=== PATIENT | male | born 1955 | race Two or more races ===

== ENCOUNTER 2022-07-02 15:30 | Emergency (ER) | payer MEDICARE, OTHER ==
[~2022-07-02] VITALS: Ht 180.3 cm; Wt 85.7 kg
--- NOTE | 2022-07-02 15:50 | NUR ---
TECH AT BEDSIDE FOR EKG
--- NOTE | 2022-07-02 15:56 | NUR ---
IV LINE ESTABLISHED ON RAC #20 ONLINE EDITOR; BLOOD DRAWN AND SENT TO LAB
[2022-07-02 16:05] LABS: BASOPHILS % (AUTO) 0.4 % (0.0-2.0); EOSINOPHILS % (AUTO) 5.3 % (0.0-6.0); HEMATOCRIT 41 % (39-51); HEMOGLOBIN 13.7 g/dL (13.5-17.5); LYMPHOCYTES % (AUTO) 39.7 % (20.0-44.0); MEAN CORPUSCULAR HGB CONC 33 g/dl (31.0-36.0); MEAN CORPUSCULAR VOLUME 97 fL (80-96); MONOCYTES # (AUTO) 0.6 K/uL (0.1-1.30); MONOCYTES % (AUTO) 8.1 % (2.0-12.0); NEUTROPHILS # (AUTO) 3.5 K/uL (1.8-8.9); NEUTROPHILS % (AUTO) 46.5 % (43.0-81.0); PLATELET COUNT (AUTO) 120 K/uL (150-450); RED BLOOD CELL COUNT(AUTO) 4.26 MIL/uL (4.5-6.0); WHITE BLOOD COUNT (AUTO) 7.5 K/uL (4.3-11.0)
[2022-07-02 16:22] LABS: CALCIUM, SERUM 8.8 mg/dL (8.5-10.1); CARBON DIOXIDE 25 mmol/L (21-32); CHLORIDE 106 mmol/L (98-107); CREATININE 1.3 mg/dL (0.6-1.3); GLUCOSE 104 mg/dL (74-106); POTASSIUM 3.9 mmol/L (3.5-5.1); SODIUM SERUM 140 mmol/L (136-145); UREA NITROGEN, BLOOD 24 mg/dL (7-18)
[2022-07-02] MEDS ORDERED: ACETAMINOPHEN ES 500 MG TABLET ONE (16:56)
[2022-07-02] MEDS ORDERED: ACETAMINOPHEN ES 500 MG TABLET PO ONE (17:00)
[2022-07-02 19:18] VITALS: BP 90/70
--- NOTE | 2022-07-02 19:18 | NUR ---
IV removed. Catheter intact and site benign. Pressure and 4x4 applied to site. No bleeding noted.
--- NOTE | 2022-07-02 19:18 | NUR ---
Patient discharged to home in stable condition. Written and verbal after care instructions given. Patient verbalizes understanding of instruction.
== END 2022-07-02 19:19 | disposition home or self-care (01) ==
LOC: ER 15:33
DX: R07.89 Other chest pain (principal); Z88.8 Allergy status to other drugs, medicaments and biological substances
CPT/HCPCS: 36415; 71045-TC; 80048-TC; 84484-TC; 85025-TC